=== PATIENT | female | born 1945 | race Caucasian/White ===

== ENCOUNTER 2019-06-02 20:22 | Inpatient (IN) | payer OTHER ==
[~2019-06-02] VITALS: Ht 152.4 cm; Wt 104.8 kg
[~2019-06-02 20:22] MED LIST: AMBIEN 10 MG TA10 MG PO; AMLODIPINE-ATO1 EAC5 PO; ASPIRIN EC81 M1 PO; BENTYL10 MG PO; COLACE 100 MG100 MG PO; COLACE100 MG PO; CRESTOR10 MG PO; DIABETA 5MG TABL5 MG PO; FISH OIL 1,001000 M2 PO; KLOR-CON 1010 MEQ PO; LASIX 20 MG TAB20 MG PO; LEVOTHYROXINE 0.15MG PO; METFORMIN HCL500 MG PO; NEXIUM40 MG PO; PERCOCET PO; PRAVACHOL40 MG PO; PROZAC20 MG PO; QUINAPRIL HCL40 MG PO; SENNA PO; TRICOR145 MG PO; VITAMIN D1000 UNI1 PO
[2019-06-02 20:23] VITALS: BP 165/78
[2019-06-02 21:17] LABS: HEMATOCRIT 37.3 % (37.0-47.0); MCHC 32.3 g/dL (28.0-37.0); MCV 83.5 fL (80.0-100.0); PLATELET COUNT 426 thou/uL (150-400); RBC 4.46 mil/uL (4.20-5.00); RDW 14.2 % (10.5-14.5); WBC 26.6 thou/uL (4.0-11.0)
[2019-06-02 21:24] LABS: CREATININE 1.1 mg/dL (0.6-1.0); POTASSIUM 3.8 mmol/L (3.5-5.1)
[2019-06-02 21:31] LABS: ALBUMIN 4.1 g/dL (3.4-5.0); DIRECT BILIRUBIN 0.3 mg/dL (<0.1-0.3); TOTAL BILIRUBIN 0.5 mg/dL (<0.1-1.0); TOTAL PROTEIN 7.9 g/dL (6.4-8.2)
[2019-06-02 21:49] LABS: ABSOLUTE NEUTROPHILS 24.7 thou/uL (1.4-8.2)
[2019-06-02 22:15] LABS: URINE BILIRUBIN NEGATIVE (Negative); URINE BLOOD NEGATIVE (Negative); URINE CLARITY CLEAR; URINE COLOR YELLOW; URINE GLUCOSE-RANDOM* 3+ (Negative); URINE KETONES 1+ (Negative); URINE LEUKOCYTES-REFLEX NEGATIVE (Negative); URINE NITRITE-REFLEX NEGATIVE (Negative); URINE PROTEIN (DIPSTICK) NEGATIVE (Negative); URINE SPECIFIC GRAVITY >= 1.030 (1.005-1.035); URINE UROBILINOGEN 0.2 E.U./dl (0.2-1.0)
[2019-06-03 00:48] VITALS: BP 165/78
[2019-06-03 02:15] VITALS: BP 152/75
[2019-06-03 02:19] VITALS: BP 128/61
--- NOTE | 2019-06-03 03:57 | NUR ---
PT ARRIVED ON THE UNIT THIS MORNING @0200 ADMISSION DONE AND DOCUMENT. PT C/O PAIN IN MID EPIGASTRIC REGION AND NAUSEA BUT NO EMESIS MEDICATION GIVEN SEE EMAR. PT A&OX4 AND UP AD AMBREEN. IV INTACT IN LFT FOREARM AND FLUIDS INFUSING. PT ON CLEAR LIQUID DIET. ICE CHIPS GIVEN. ON 2L OF O2 FOR SLEEP. PT SON AT BEDSIDE FOR THE NIGHT. CALL LIGHT WITHIN REACH WILL CONT WITH POC TILL EOS.
[2019-06-03 04:38] LABS: CALCIUM 9.2 mg/dL (8.5-10.1); CREATININE 0.9 mg/dL (0.6-1.0); POTASSIUM 3.6 mmol/L (3.5-5.1)
[2019-06-03 04:59] LABS: HEMATOCRIT 35.4 % (37.0-47.0); HEMOGLOBIN 11.4 gm/dL (12.0-15.0); MCHC 32.1 g/dL (28.0-37.0); MCV 84.2 fL (80.0-100.0); RBC 4.21 mil/uL (4.20-5.00); RDW 14.3 % (10.5-14.5); WBC 24.3 thou/uL (4.0-11.0)
[2019-06-03 08:21] VITALS: BP 147/68
--- NOTE | 2019-06-03 15:47 | NUR ---
Assumed care of pt at 0700. Pt a&ox4. Up ad arlette. C/o nausea. Zofran administered. 1.5 hours after med administration, pt c/o nausea again. Provider notified. New order noted. IVF and IV antibiotics infusing. In isolation for presumptive C-diff. Isolation cart ordered. Denies pain. Will continue to monitor.
[2019-06-03 17:07] VITALS: BP 146/67
[2019-06-03] MEDS ORDERED: MICROZIDE12.5 MG PO (19:57)
[2019-06-03 20:20] VITALS: BP 152/72
--- NOTE | 2019-06-04 03:45 | NUR ---
PT AOX4. PT REPORTS 4/10 PAIN IN ABDOMEN. PT RECEIVING PRN MORPHINE IV Q4HR. PT ALSO REPORTING NAUSEA, NO EPISODES OF VOMITING. PT RECEIVING PRN ZOFRAN IV Q4HR AND PRN COMPAZINE IV Q6HR. PT REPORTS MEDICATIONS EFFECTIVE PT REPORTS SHE IS ABLE TO REST. PT SON AT BEDSIDE. PT AMBULATES INDEPENDENTLY WITH STAND BY ASSIST. PT INDEPENDENT IN ADLS. PT REPORTS SOA WITH EXERTION. PROVIDED PT OXYGEN, PT REPORTS RELIEF AT 2L. PT REPORTS NOT RECEIVING HCTZ. PT PROVIDED MEDICAL LIST COPIED AND PLACED IN CHART. MEDICATIONS RECONCILED. RESIDENTIAL ASSISTANT LIFE SKILLS COORDINATOR VOLUNTEER NOTIFIED, HCTZ ON CURRENT EMAR. PT RESTING IN BED WITHOUT INTERRUPTION OR OBSERVATION OF PAIN. ENCOURAGED TO NOTIFY STAFF FOR ALL CONCERNS. BED IN LOWEST POSITION, CALL LIGHT WITHIN REACH, BED ALARM ON. WILL CONTINUE TO MONITOR.
[2019-06-04 06:51] VITALS: BP 137/72
[2019-06-04 07:37] VITALS: BP 125/61
--- NOTE | 2019-06-04 09:40 | NUR ---
ASSUMED CARE AT 0700. PT IS AOX4, REPORTS PAIN IS CONTROLLED AT THIS TIME WITH PAIN ANALGESIC. PT DENIES N/V AT THIS TIME. UP AD AMBREEN, GAVE MILK OF MAG TO HELP WITH CONSTIPATION. CONSULT CALLED TO GI FOR AB HERNIA. NC REMAINS IN PLACE, 02 SAT 90'S WITH 2L O2. CALL LIGHT/PERSONAL BELONGINGS IN REACH. WILL CONTINUE TO MONITOR.
--- NOTE | 2019-06-04 13:49 | NUR ---
ASSESSMENT-PT LIVES IN A RAISED RANCH STYLE HOME WITH HER SON. PT HAS A CHAIRLIFT TO THE MAIN LEVEL OF THE HOME. PT WALKS ON HER OWN AND DOES HER OWN ADLS. PT DRIVES. SON IN GOOD HEALTH AND ABLE TO ASSIST IF NEEDED. PT USES NO DME AND HAS NOT HAD ANY HH SERVICES. PT HAS A WALKER, CANE AND CRUTCHES BUT NOT USING ANY OF THESE. PT VOICES NO CONCERNS REALTED TO DC. FOLLOWING TO ASSIST WITH DC PLANNING.
[2019-06-04 17:11] VITALS: BP 155/67
[2019-06-04 19:10] VITALS: BP 149/69
[2019-06-05 04:30] VITALS: BP 132/53
--- NOTE | 2019-06-05 05:25 | NUR ---
PT AOX4. PT REPORTS MILD NAUSEA AND PAIN 4/10 IN ABDOMEN. PT RECEIVING PRN ZOFRAN Q4HR, PRN COMPAZINE Q6HR, AND PRN MORPHINE Q4HR. PT REPORTS COMPAZINE AND MORPHINE EFFECTIVE FOR NAUSEA AND PAIN MANAGEMENT. PT ANTICIPATING COLONOSCOPY ON 06/05. PT TOLERATING PO INTAKE WITHOUT ISSUE. NO EPISODES OF VOMITING. PT CONTINUES TO AMBULATE INDEPENDENTLY. PT SON AT BEDSIDE. ENCOURAGED TO NOTIFY STAFF FOR ALL CONCERNS. BED IN LOWEST POSITION, CALL LIGHT WITHIN REACH, BED ALARM ON. WILL CONTINUE TO MONITOR.
[2019-06-05 07:30] VITALS: BP 133/64
--- NOTE | 2019-06-05 15:48 | NUR ---
PT AOX4, VSS, NO C/O PAIN. PT IV IN L FOREARM WAS PATENT PRIOR TO GI PROCEDURE. PT BACK TO UNIT APPROX 1545 FROM PACU. PT DENIES PAIN AT THIS TIME. FALL PRECAUTIONS IN PLACE, CALL LIGHT/PERSONAL BELONGINGS IN REACH. WILL CONTINUE TO MONITOR PT.
[2019-06-05 15:51] VITALS: BP 145/65
[2019-06-05 20:50] VITALS: BP 145/73
--- NOTE | 2019-06-05 23:40 | NUR ---
ASSUMED PT CARE @1900. PT DENIES PAIN. EPISODES OF BOWEL INCONTINENCE FREQUENTLY TONIGHT. ANTIBIOTICS GIVEN. PUT BACK ON OXYGEN DUE TO DROPPING SATS. VERY ANXIOUS TO GO HOME.
[2019-06-06 05:00] VITALS: BP 137/59
[2019-06-06 05:59] LABS: HEMATOCRIT 27.7 % (37.0-47.0); HEMOGLOBIN 9.1 gm/dL (12.0-15.0); MCH 27.5 pg (26.0-34.0); MCHC 32.9 g/dL (28.0-37.0); MCV 83.6 fL (80.0-100.0); RBC 3.31 mil/uL (4.20-5.00); RDW 14.3 % (10.5-14.5); WBC 10.1 thou/uL (4.0-11.0)
[2019-06-06 06:14] LABS: CALCIUM 7.7 mg/dL (8.5-10.1); CREATININE 0.6 mg/dL (0.6-1.0); MAGNESIUM 1.5 mg/dL (1.8-2.4); POTASSIUM 3.1 mmol/L (3.5-5.1)
[2019-06-06 07:10] VITALS: BP 138/89; BP 142/69
[2019-06-06 15:00] VITALS: BP 145/65
[2019-06-06] MEDS ORDERED: LEVAQUIN 750 M750 MG PO (16:20)
[2019-06-06] MEDS ORDERED: FLAGYL500 M1 PO (16:20)
[2019-06-06] MEDS ORDERED: LASIX 20 MG TAB20 MG PO (16:21)
[2019-06-06] MEDS ORDERED: B-12500 MCG PO (16:23)
--- NOTE | 2019-06-06 16:34 | NUR ---
PT ASSESSED AT START OF SHIFT. STATES NO NAUSEA OR ABD PAIN BUT IS STILL CLEANING OUT AFTER LAXATIVE FOR COLONOSCOPY. GI ROUNDED AND ADVANCED DIET TO REGULAR FOOD AND PT TOLERATED IT WELL. PT O2 SAT DECREASED SOME AND NEEDING OXYGEN. EXERCISE SAT PERFORMED BY RESP THERAPY AND PT DISCHARGING HOME ON 2L NC. AMBULATED IN THE HALLS TWICE.
--- NOTE | 2019-06-06 16:53 | NUR ---
FAXED REFERRAL TO [facility] FOR HOME O2 RECEIVED CONFIRMATION AND SPOKE WITH INTAKE THEY HAVE A OVEN TECHNICIAN DELIVERING A O2 TANK TODAY PRIOR TO DC.
[2019-06-06 19:33] VITALS: BP 145/65
--- NOTE | 2019-06-07 17:06 | PATH ---
[facility] [place] [address] PATHOLOGY RPT PROCEDURE Name: MARVINCHITOJarad ROSSI Room #: 434-P DIS IN M.R.#: [id number] Admission: 06/03/19 Date of : 49 Discharge: 06/06/19 Report #: [id number] Path Case #: [id number] [facility] Accession Number: [id number] . 01 Material submitted: . PART A: colon - BX AT 100CM PART B: colon - BX AT NARROWING 90CM PART C: sigmoid colon - POLYP AT SIGMOID . 01 Clinical history: . Abd pain; abnormal CT scan . 02 Diagnosis: A. Large intestinal mucosa, at 100 cm, endoscopic biopsy: - Mild active colitis associated with reactive/regenerative changes. - Negative for dysplasia or malignancy. . B. Large intestinal mucosa, at narrowing 90 cm, endoscopic biopsy: - Mild active colitis associated with reactive/regenerative changes. - Negative for dysplasia or malignancy. . C. Polyp, at sigmoid, endoscopic biopsy: - Hyperplastic polyp. - Negative for dysplasia or malignancy. LBQ 06/07/2019 1431 Local . 02 Comment: Examination of the "100 cm", and "90 cm" biopsy tissues shows a cellular lamina propria comprised of neutrophils, eosinophils, lymphocytes as well as plasma cells. A few pigmented macrophages are identified compatible with melanosis coli. The overlying surface epithelium is denuded in several areas and shows a thin fibrotic lining. Thickening of subepithelial collagen is not appreciated where the epithelium is intact. Architectural abnormalities are not identified. There are no crypt abscesses identified as well. Increase in intraepithelial lymphocytes is not present. Viral inclusions or parasitic organisms are not identified. Overall, the findings are non-specific and may represent medication/drug induced colitis, reparative changes secondary to inactive self-limited or infectious-type of colitis, diverticulitis, as well as healing ischemic colitis. Clinical correlation is required. There is no dysplasia or malignancy present. (IUV/db; 06/07/2019) . 02 Electronically signed: . Sulma Cardoso MD, Pathologist NPI- [id number] . [address] [place] [address] PATHOLOGY RPT PROCEDURE Name: CHITO PEARSON Room #: 434-P DIS IN M.R.#: [id number] Admission: 06/03/19 Date of : 49 Discharge: 06/06/19 Report #: [id number] Path Case #: [id number] Gross description: . A. Received in formalin labeled "Chito Pearson, BX at 100cm," are two segments of pale ward soft tissue measuring 0.2 x 0.1 x 0.1 cm and 0.3 x 0.3 x 0.2 cm in greatest dimensions. The specimen is submitted entirely in cassette A1. The smaller segment may not survive processing. . B. Received in formalin labeled "Chito Pearson, BX at narrowing 90cm colon," are four segments of pale ward soft tissue measuring 0.7 x 0.5 x 0.2 cm in aggregate dimensions and ranging from 0.3 to 0.4 cm in maximum dimension. The specimen is submitted entirely in cassette B1. . C. Received in formalin labeled "Chito Pearson, polyp at sigmoid colon," are two segments of ward-brown soft tissue measuring 0.3 x 0.2 x 0.1 cm and 0.4 x 0.3 x 0.2 cm in greatest dimensions. The specimen is submitted entirely in cassette C1. ([facility]; 06/06/2019) XNM/XNM 06/06/2019 09 Local . 02 Pathologist provided ICD-10: K52.9, K63.5 . 02 CPT . 181821, 981434, 884899 Specimen Comment: A courtesy copy of this report has been sent to [phone], [phone] Specimen Comment: [phone], Specimen Comment: Report sent to , and Performed at: [address], [place] [id number] MD Tim Rojas MD Phone: [phone] Performed at: [address] [id number] MD Sulma Cardoso MD Phone: [phone]
--- NOTE | 2019-06-13 08:11 | P ---
[facility] [place] [address] [place] [address] PROCEDURE REPORT Name: CHITO WONG Room #: 434-P [facility] IN M.R.#: [id number] Admission: 06/03/19 Attend Phys: Jez Tavarez MD Discharge: 06/06/19 Date of : 49 Report #: [id number] THIS REPORT FOR: //name// CC: Kath Sanders. Jez Tavarez MD DATE OF SERVICE: 06/05/2019 PROCEDURE PERFORMED: Colonoscopy with biopsies. HISTORY OF PRESENT ILLNESS: The patient is a 74-year-old female with abdominal pain. On admission on 06/02/2019 showed inflammatory change abnormal wall thickening extending to the proximal colon through the ascending colon, hepatic flexure, and transverse colon to the supraumbilical hernia felt to represent colitis. Clinical correlation is recommended. The patient does have elevated white count. She has been on Flagyl and Cipro since admission. She has a hernia measuring 4.1 cm in transverse supraumbilical region. She is feeling better. She denies any blood in her stools. White blood cell count 2 days ago was 24.3. DESCRIPTION OF PROCEDURE: The risks and benefits of the procedure were explained to the patient, those risks including but not limited to bleeding, perforation and the risk of sedation. She understood these risks and gave informed consent. Sedation was given using propofol per anesthesia. Next, a digital rectal exam was initially performed, which was normal. Next, using a standard Olympus colonoscope, the scope was placed in the patient's anus and advanced under direct vision to 100 cm at which point a narrowing, but more likely a tight turn was noted. I was able to advance the scope through this area, but not able to advance it through any further once I got through the narrowing. I suspect the scope is being advanced into one of the hernias and I am not able to advance the scope any further. I tried multiple times over approximately 30-40 minutes. The mucosa was slightly more pale in this pocket. Biopsies were obtained to rule out ischemic colitis, but no bleeding or no ulcerations were noted. I also obtained some biopsies at the narrowing, but again this may just be the opening to the hernia. I never was able to reach the cecum despite multiple attempts. The scope was then slowly withdrawn. The remaining descending colon was normal. Multiple diverticula were noted in the sigmoid colon, a 4 mm sessile polyp was noted in the sigmoid colon. This was removed with cold forceps. The rectal mucosa was normal. On retroflexion, no abnormalities were noted. The scope was then withdrawn and the procedure terminated. The patient tolerated the procedure well. IMPRESSION: 1. Unable to advance the scope further than 100 cm. I suspect this is due to [facility] [address] [place] [address] PROCEDURE REPORT Name: CHITO WONG Room #: 434-P DIS IN M.R.#: [id number] Admission: 06/03/19 Attend Phys: Jez Tavarez MD Discharge: 06/06/19 Date of : 49 Report #: [id number] the scope looping in a hernia sac. Per CT, there appears to be colitis proximal to this, there was some mild paleness to the mucosa in the hernia sac area or beyond the area of narrowing. Biopsies were obtained, but again, I was not able to advance the scope much further despite multiple attempts. 2. Sigmoid diverticulosis without inflammation. 3. Small sigmoid colon polyp. RECOMMENDATIONS: 1. Await biopsy results. 2. Continue IV antibiotics. 3. Stool was also obtained and sent for further studies today. 4. If symptoms persist or if white blood cell count remains elevated, may need to consider repeat imaging or even barium enema. The patient may require surgical repair of hernias. Dr. Sanders is following. Thank you for allowing me to participate in her care. <ELECTRONICALLY SIGNED> By: Evelio Zuñiga MD 06/13/19 0811 1505 [id number] Evelio Zuñiga MD /nt
== END 2019-06-06 19:56 | disposition home or self-care (01) | DRG 871 ==
LOC: ER 20:22 → 4S 06-03 00:23 → EROBS 06-03 00:23 → 4S 06-03 02:15
PROVIDERS: Emergency Medicine; Internal Medicine; Nurse Practitioner; Nurse Practitioner Family; ADMIT Internal Medicine
DX: A41.9 Sepsis, unspecified organism (principal); J96.20 Acute and chronic respiratory failure, unspecified whether with hypoxia or hypercapnia; A09 Infectious gastroenteritis and colitis, unspecified; Z68.42 Body mass index [BMI] 45.0-49.9, adult; N17.9 Acute kidney failure, unspecified; I50.32 Chronic diastolic (congestive) heart failure; K58.9 Irritable bowel syndrome, unspecified; E66.01 Morbid (severe) obesity due to excess calories; E03.9 Hypothyroidism, unspecified; E78.5 Hyperlipidemia, unspecified; E11.9 Type 2 diabetes mellitus without complications; K21.9 Gastro-esophageal reflux disease without esophagitis; M19.90 Unspecified osteoarthritis, unspecified site; G47.33 Obstructive sleep apnea (adult) (pediatric); K46.9 Unspecified abdominal hernia without obstruction or gangrene; K57.90 Diverticulosis of intestine, part unspecified, without perforation or abscess without bleeding; K43.2 Incisional hernia without obstruction or gangrene; E53.8 Deficiency of other specified B group vitamins; E87.6 Hypokalemia; E83.42 Hypomagnesemia; I11.0 Hypertensive heart disease with heart failure; D64.9 Anemia, unspecified; Z90.49 Acquired absence of other specified parts of digestive tract; Z79.4 Long term (current) use of insulin; Z79.82 Long term (current) use of aspirin; Z79.891 Long term (current) use of opiate analgesic; Z79.899 Other long term (current) drug therapy; Z79.84 Long term (current) use of oral hypoglycemic drugs
CPT/HCPCS: 10100; 10195; 62110; 62900; 70005

== ENCOUNTER → 2019-06-28 | Outpatient (CLI) | payer OTHER ==
[~2019-06-28] MED LIST changes: +B-12500 MCG PO; +FLAGYL500 M1 PO; +LEVAQUIN 750 M750 MG PO; +MICROZIDE12.5 MG PO
[2019-06-28 15:45] LABS: BE(vivo) 3.7 mmol/L (-2 to +3); HCO3 27.9 mmol/L (22.0-26.0); PCO2 40.6 mmHg (35.0-45.0); PO2 67.6 mmHg (80.0-100.0); pH 7.455 (7.360-7.450); sO2 94.3 % (92.0-98.0)
== END ==
LOC: PUL 15:04
PROVIDERS: Internal Medicine
DX: R06.02 Shortness of breath (principal)

== ENCOUNTER → 2019-07-10 | Outpatient (CLI) | payer OTHER ==
--- NOTE | 2019-07-11 14:11 | SLE ---
[facility] [place] [address] [place] [address] POLYSOMNOGRAPHY STUDY Name: CHITO WONG Room #: [facility]#: [id number] Admission: 07/10/19 Attend Phys: Eugenio Smith MD Discharge: Date of : 49 Report #: [id number] THIS REPORT FOR: //name// CC: Eugenio Seals MD DATE OF SERVICE: 07/10/2019 SLEEP STUDY ATTENDING PHYSICIAN: Dr. Kayden Seals. The patient is 74 years old who weighs 240 pounds with a BMI of 46.9. The patient's [place] score was 8. The patient underwent split night study performed at [facility]. During the night study, the patient spent 500 minutes in bed and slept for 319 minutes with a low sleep efficiency of 63%. Sleep latency was 33 minutes with a REM latency of 174 minutes. Sleep architecture showed increased stage 1 sleep, normal stage 2 sleep, absent slow wave and increased REM sleep. During the initial diagnostic portion of the study, the patient slept for 145 minutes. During that time, there were 15 obstructive apneas, no mixed or central apneas and 72 hypopneas. The patient's apnea-hypopnea index was 36 per hour with a REM index of 96 per hour and a supine index of 43 per hour. EKG monitoring revealed an average heart rate of 82 beats per minute. No sustained arrhythmias observed. Occasional PVCs seen. No clinically significant PLM seen. Nocturnal oximetry study revealed an average oxygen saturation of 89% with the lowest of 63%. Over 70 minutes were spent in oxygen saturation of less than 89%. The patient met the criteria for CPAP initiation. It was started at 7 cm water and titrated up to 17 cm water. At the final pressure, the patient slept for 43 minutes, almost the entire time was spent in supine REM sleep. The patient's AHI was still 22 per hour due to multiple hypopneas and oxygen saturation remained above 88% with few desaturations in the low 80s. Optimum CPAP pressure was not achieved. IMPRESSION: 1. Severe sleep apnea-hypopnea syndrome. The patient's total AHI 36 per hour [facility] [address] [place] [address] POLYSOMNOGRAPHY STUDY Name: MARVINCHITOJarad ROSSI Room #: [facility]#: [id number] Admission: 07/10/19 Attend Phys: uEgenio Smith MD Discharge: Date of : 49 Report #: [id number] with further worsening AHI to 96 per hour during REM sleep. 2. Nocturnal hypoxia secondary to obstructive sleep apnea. 3. No clinically significant periodic limb movements of sleep. 4. Reduced sleep efficiency of 63%. RECOMMENDATIONS: 1. Optimum CPAP pressure was not achieved on this split night study despite reaching CPAP at 17 cm water. The patient had a very long REM sleep period at that pressure and as a result, was still having hypopneas. I would recommend that the patient should return to the sleep lab for a full night BiPAP titration study, starting at a BiPAP pressure of 14/10 and following the protocols. 2. Once the patient is optimally treated with BiPAP, then follow up in 4-6 weeks to assess compliance and to document clinical improvement. 3. Weight loss is strongly advised. 4. Avoid HIDE INSPECTOR AND SORTER depressants. 5. Cautioned regarding driving until symptoms of sleep apnea resolve with the use of BiPAP. <ELECTRONICALLY SIGNED> By: Eugenio Smith MD 07/11/19 1411 1202 1228 Eugenio Smith MD /nt
== END ==
LOC: SLEEPLAB 14:23
DX: G47.33 Obstructive sleep apnea (adult) (pediatric) (principal); G47.30 Sleep apnea, unspecified

== ENCOUNTER → 2019-07-26 | Outpatient (CLI) | payer OTHER ==
--- NOTE | 2019-07-30 15:40 | SLE ---
[facility] [place] [address] [place] [address] POLYSOMNOGRAPHY STUDY Name: CHITO WONG Room #: [facility]#: [id number] Admission: 07/26/19 Attend Phys: Eugenio Smith MD Discharge: Date of : 49 Report #: [id number] THIS REPORT FOR: //name// CC: Eugenio Seals MD DATE OF SERVICE: 07/26/2019 SLEEP STUDY. REFERRING PHYSICIAN: Dr. Kayden Seals. The patient is a 74-year-old who weighs 240 pounds with a BMI of 46.9. The patient had a previous split night study and was found to have severe JULIA at an AHI of 36 per hour. The patient was titrated up to CPAP at 17 cm water, but due to a very long REM period, the patient was still having hypopneas and an optimum CPAP pressure was not achieved. She was recommended to have a full night BiPAP titration study. During the night study, the patient spent 436 minutes in bed and slept for 255 minutes with a low sleep efficiency of 58%. Sleep latency was 5.2 minutes with a REM latency of 54 minutes, which was short. Sleep architecture showed increased stage 1 and stage 2 sleep, absent slow wave and reduced REM sleep, which was 8.6% of the total sleep time. EKG monitoring revealed an average heart rate of 67 beats per minute. No sustained arrhythmias observed. PLMS were seen at an index of 4 per hour and 0.2 per hour caused EEG arousals. The patient was started on BiPAP at a pressure of 10/5. The pressure was gradually increased to eliminate apneas as well as hypopneas. The patient's BiPAP pressure was increased all the way up to 21/14. At that pressure, the patient had only 11.8 minutes of sleep. AHI was reduced to 0 per hour and oxygen saturation remained above 95%. The patient also did well at a lower BiPAP pressure of 17/10 and at that pressure, the patient also had 17 minutes of REM sleep and AHI was 3.1 per hour. IMPRESSION: 1. Severe sleep apnea diagnosed by previous sleep study. 2. No clinically significant periodic limb movements. 3. 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 RECOMMENDATIONS: [facility] [address] [place] [address] POLYSOMNOGRAPHY STUDY Name: CHITO WONG [place] Room #: [facility]#: [id number] Admission: 07/26/19 Attend Phys: Eugenio Smith MD Discharge: Date of : 49 Report #: [id number] 1. BiPAP at a pressure of 21/14 completely eliminate the patient's sleep apnea and should be used on a nightly basis. 2. Follow up in 4-6 weeks to assess compliance with BiPAP and to document clinical improvement along with review of the download data. 3. Weight loss is strongly advised. 4. Avoid EDGE GLUE MACHINE TENDER depressants. 5. Cautioned regarding driving until symptoms of sleep apnea resolve with the use of BiPAP. <ELECTRONICALLY SIGNED> By: Eugenio Smith MD 07/30/19 1540 1027 1045 Eugenio Smith MD /nt
== END ==
LOC: SLEEPLAB 07-20 20:27
DX: G47.30 Sleep apnea, unspecified (principal)

== ENCOUNTER 2019-11-07 17:36 | Inpatient (IN) | payer OTHER ==
[~2019-11-07] VITALS: Ht 152.4 cm; Wt 112.0 kg
--- NOTE | ~2019-11-07 | O ---
[facility] [place] [address] OPERATIVE REPORT Name: CHITO WONG Room #: 457-P ADM IN M.R.#: [id number] Admission: 11/07/19 Attend Phys: Robin Hogan MD Discharge: Date of : 47 Report #: [id number] THIS REPORT FOR: cc: Cornelia Sage MD, Staci M. MD Soliman, Mohsin Q. MD FACS ~ CC: Robin Saeg DATE OF SERVICE: 11/12/2019 PREOPERATIVE DIAGNOSES: 1. Multiple incarcerated recurrent incisional ventral hernias. 2. Suspected intraabdominal adhesions. POSTOPERATIVE DIAGNOSES: 1. Multiple incarcerated recurrent incisional ventral hernias containing omentum and a loop of transverse colon. 2. Significant intra-abdominal adhesions. PROCEDURES PERFORMED: 1. Laparoscopic repair of multiple incarcerated recurrent incisional ventral hernias with mesh. 2. Laparoscopic lysis of adhesions. SURGEON: Nola Reddy MD SHED HAND: BIMAL Dacosta ANESTHESIA: General endotracheal anesthesia. ESTIMATED BLOOD LOSS: Minimal (less than 5 mL). COMPLICATIONS: None appreciated. SPECIMENS: Incarcerated contents of hernia sac to pathology. INDICATIONS: The patient is a 74-year-old obese female, who has been admitted for the second time in 6 months with partial obstructive symptoms from an incarcerated loop of transverse colon contained within a recurrent incisional ventral hernia down her upper midline incision from a prior open paraesophageal hernia repair. The patient does relate that she had an attempt at open suture repair of a hernia in the past and unfortunately, these have recurred with CT scan finding showing the above. After thorough consultation with the patient, we have elected to proceed to the operating room today for the above-mentioned procedures. [facility] [address] [place] [address] OPERATIVE REPORT Name: CHITO WONG Room #: 457-P [facility] IN .R.#: [id number] Admission: 11/07/19 Attend Phys: Robin Hogan MD Discharge: Date of : 47 Report #: [id number] DESCRIPTION OF PROCEDURE: After explaining the risks, benefits and alternatives of the procedure with the patient in detail in the preoperative holding area and obtaining written consent, the patient was brought to the operating room and placed supine on the operating room table. After conducting a thorough timeout procedure verifying correct patient and procedure, the patient was given general endotracheal anesthesia. Once adequate anesthesia was obtained, her SCDs were hooked up to pneumatic compression device and she was given a preoperative dose of antibiotics in line with the SCIP protocol. The patient's abdomen was prepped and draped in standard surgical sterile fashion. A 5 mL of 0.5% Marcaine with epinephrine were used to anesthetize the skin in the left upper quadrant, midclavicular line in the subcostal location. A #15 bladed scalpel was used to create a small skin liset at this location. A 5-mm Visiport was placed over 0-degree 5-mm laparoscope and was introduced through this incision site. Once intra-abdominal placement was verified visually, the obturator for the trocar and laparoscope were both removed and the abdomen was insufflated to 15 mmHg using carbon dioxide gas. The laparoscope was changed to a 5-mm 30-degree laparoscope, which was reintroduced through this trocar. The entire abdomen was evaluated to ensure no injury upon entry. We immediately encountered significant adhesions in the mid abdomen, but the left flank was devoid of adhesions. I was therefore able to place a 12-mm port lateral to the umbilicus in the anterior axillary line, and an additional 5-mm port in the left lower quadrant. Both were placed under direct vision after anesthetizing the skin at each location with 5 mL of 0.5% Marcaine with epinephrine and I had created small skin nicks using #15 bladed scalpel. Laparoscope was removed and changed to the 12 mm port, and I now proceeded to take down all the adhesions from the abdominal wall using the Harmonic scalpel. This allowed me to fully reduce all the incarcerated omentum from the numerous recurrent incisional ventral hernias. The segment of transverse colon that was incarcerated in her hernia was luckily able to be reduced, leaving a clear plane between the bowel and the abdominal wall and hernia sac. I was therefore able to take the hernia sac down with ease using Harmonic scalpel without fear of injury to the bowel from thermal spread. Once I had removed all these adhesions, I skeletonized posterior aspect of the anterior abdominal wall, taking down all the tethered preperitoneal fat as well. Photodocumentation of the hernia defects was now taken and provided to the patient's permanent medical record. A small stab incision was made in the midline wound overlying the center most portion of the span of the defects and now numerous #1 PDS sutures on the Rj-Felipe suture passer device were used to place sjrrui-go-[id number] sutures around each of the large hernia defects. These were all tagged with hemostats and the spread of hernia defects was measured to be 15 cm in craniocaudal dimension x 3 cm laterally. I therefore selected a piece of Ventralight ST mesh measuring 25 x 15 cm in dimension to allow for 5 cm overlap in all directions outside of the span of the hernia defects. The mesh was rolled up, placed in the intra-abdominal space and the Rj-Felipe suture passer device was again driven through the stab incision in the mid abdominal region centered through [facility] [address] [place] [address] OPERATIVE REPORT Name: MARVIN,CHITO ROSSI Room #: 457-P ADM IN M.R.#: [id number] Admission: 11/07/19 Attend Phys: Robin Hogan MD Discharge: Date of : 47 Report #: [id number] the hernia defect at the mid portion of the span, which was then used to grasp the end eyelet of the balloon insufflation tubing which was then pulled up through the abdominal wall, cut off and passed off the field. The balloon insufflation tubing was now attached to the syringe and insufflator and the echo scaffolding was fully inflated and tagged with a hemostat at the skin level without having the mesh in close approximation with posterior aspect of the anterior abdominal wall at this juncture. The insufflation pressure was now reduced to 8 mmHg, and I proceeded to sequentially tie down each of the #1 PDS sutures while maintaining traction on the others to fully repair all of the recurrent incisional ventral hernias down the midline from a primary suture fashion. These were then cut at the skin level. I now pulled up on the balloon insufflation tubing which held the entire mesh in close approximation with posterior aspect of the anterior abdominal wall throughout and tagged with another hemostat at the skin level to maintain positioning. I now fixed this into position using the secure strap absorbable fixation device placing numerous tacks around the periphery of the mesh at 1 cm intervals as well as several tacks throughout the innermost portion of the mesh as well to hold the entire mesh in close approximation with posterior aspect of the anterior abdominal wall throughout. The echo scaffolding was removed under direct vision and hemostasis was assured. Photodocumentation of the suture repair as well as the corresponding mesh repair was taken and provided to the patient's permanent medical record as well. One final evaluation of the intra-abdominal domain showed no further evidence of pathology. The laparoscope was removed, changed back to the left upper quadrant trocar and I closed the 12-mm fascial incision using 0 PDS suture on a Rj-Felipe suture passer device. This was tied down under direct vision as well. The abdomen was now fully desufflated. All remaining trocars were removed under direct vision. A 4-0 Monocryl was used in a standard subcuticular fashion for all skin incisions and Dermabond glue was applied to all skin wounds. At the end of the procedure, all instrument, needle and sponge counts were correct. The patient tolerated the procedure without incident, was awakened in the operating room, transitioned to the recovery room in stable condition with no apparent complications. By: [id number] Nola Reddy MD, FACS /nt
[2019-11-07 17:48] VITALS: BP 163/65
[2019-11-07 17:59] LABS: URINE BILIRUBIN NEGATIVE (Negative); URINE BLOOD TRACE (Negative); URINE CLARITY TURBID; URINE COLOR YELLOW; URINE GLUCOSE-RANDOM* 3+ (Negative); URINE KETONES NEGATIVE (Negative); URINE LEUKOCYTES-REFLEX NEGATIVE (Negative); URINE NITRITE-REFLEX NEGATIVE (Negative); URINE PROTEIN (DIPSTICK) NEGATIVE (Negative); URINE UROBILINOGEN 0.2 E.U./dl (0.2-1.0)
[2019-11-07 18:37] LABS: HEMATOCRIT 33.6 % (37.0-47.0); HEMOGLOBIN 11.3 gm/dL (12.0-15.0); MCH 27.5 pg (26.0-34.0); MCHC 33.7 g/dL (28.0-37.0); MCV 81.5 fL (80.0-100.0); PLATELET COUNT 350 thou/uL (150-400); RBC 4.13 mil/uL (4.20-5.00); RDW 14.4 % (10.5-14.5); WBC 15.6 thou/uL (4.0-11.0)
[2019-11-07 18:45] LABS: ANION GAP 13 mmol/L (7-16); BUN 10 mg/dL (7-18); CALCIUM 8.3 mg/dL (8.5-10.1); CHLORIDE 99 mmol/L (98-107); CO2 25 mmol/L (21-32); GLUCOSE 265 mg/dL (74-106); POTASSIUM 3.6 mmol/L (3.5-5.1); SODIUM 137 mmol/L (136-145)
[2019-11-07 18:55] LABS: ALBUMIN 3.6 g/dL (3.4-5.0); LIPASE 54 U/L (73-393); SGOT 16 U/L (15-37); SGPT 18 U/L (30-65); TOTAL BILIRUBIN 0.4 mg/dL (<0.1-1.0); TOTAL PROTEIN 7.1 g/dL (6.4-8.2); TROPONIN-I <0.06 ng/mL (<0.06)
[2019-11-07 19:13] LABS: ABSOLUTE NEUTROPHILS 14.4 thou/uL (1.4-8.2); PLATELET ESTIMATE NORMAL
[2019-11-07] MEDS ORDERED: FENOFIBRATE145 M1 PO (19:15)
[2019-11-07] MEDS ORDERED: HYDROCHLOROTH12.5 M2 PO (19:15)
[2019-11-07] MEDS ORDERED: AMLODIPINE-ATO1 EAC6 PO (19:15)
[2019-11-07] MEDS ORDERED: LEVOTHYROXINE150 MCG PO (19:15)
[2019-11-07] MEDS ORDERED: VITAMIN B-12500 MCG PO (19:16)
[2019-11-07] MEDS ORDERED: OMEPRAZOLE 20 M20 M1 PO (19:20)
--- NOTE | 2019-11-07 20:07 | NUR ---
1ST SET OF BLOOD CULTURES DRAWN FROM RAC AT THIS TIME. THIS IS THE SECOND ATTEMPT AT DRAWING BLOOD CULTURES. WILL ATTEMPT TO DRAW SECOND SET FROM THE RIGHT ARM AGAIN AFTER THE ALLOTED 15 MINUTES HAVE PASSED.
[2019-11-07 21:47] VITALS: BP 176/76
[2019-11-07 21:54] VITALS: BP 167/76
[2019-11-07 22:10] LABS: CHOLESTEROL 213 mg/dL (<200); HDL CHOLESTEROL 45 mg/dL (>40); LDL CHOLESTEROL 134 mg/dL (<100); TC:HDL 4.7 Ratio (Not establshd); TRIGLYCERIDE 171 mg/dL (<150); VLDL 34 mg/dL (<40)
[2019-11-07 22:12] LABS: SERUM ASSESSMENT Clear
[2019-11-07 22:18] VITALS: BP 138/72
--- NOTE | 2019-11-07 23:45 | NUR ---
Pt arrived from ED approx 2215 via cart accompanied by staff. A/OX4, VSS. Up ad arlette w/o problems. Pt oriented to room and sorroundings,admission paperwork signed. C/o mild abd pain at this time and declines pain medication. Denies nausea. Pt encouraged to call for help as needed before getting OOB and agreeable. IVF infusing via RFA w/o difficulties. Pt wears a BIPAP at home son supposed to bring pt's own BIPAP sometime, pt on 2L/NC, RT came by and offered one she declines at this time and states she'll be fine on oxygen and call if needed. Resting quietly at this time no distress noted, will continue to monitor pt.
[2019-11-08 03:55] VITALS: BP 131/62
[2019-11-08 07:45] VITALS: BP 129/77
--- NOTE | 2019-11-08 08:22 | EKG ---
[facility] [place] [address] [place] [address] ELECTROCARDIOGRAM REPORT Name: CHITO WONG Room #: 457-P ADM IN M.R.#: [id number] Admission: 11/07/19 Attend Phys: Robin Hogan MD Discharge: Date of : 47 Report #: [id number] THIS REPORT FOR: cc: Cornelia Sage MD, Staci M. MD Lundgren, Craig H. 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 : 1945 Requested By: Stefanie Mota Order Number: [id number] MD: Alcon Moore Measurements Intervals Lavina Rate: 69 P: -24 NJ: 219 QRS: -1 QRSD: 78 T: 4 QT: 446 QTc: 478 Interpretive Statements Sinus rhythm Borderline prolonged NJ interval Borderline T abnormalities, diffuse leads Compared to ECG 06/03/2006 11:15:14 No significant changes Electronically Signed On 11-08-2019 8:21:03 CDT by Alcon Moore [email or web address] <ELECTRONICALLY SIGNED> By: Alcon Moore MD, [facility] 11/08/19 [id number] Alcon Moore MD, [facility] /EPI
--- NOTE | 2019-11-08 11:32 | NUR ---
tried calling phil in room, no answer. will cont following as needed
--- NOTE | 2019-11-08 13:47 | NUR ---
Nutrition: pt seen due to consult related to "diabetes". Pt currently on clear liquid diet for colitis, partial SBO. Reports normal appetite/intake prior to admit. Did have some weight loss in may following a hospitalization, approx. 5%. BMI 48 extreme class 3 obesity. 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 A1C pending. Good BG control at present. Does not voice education desires at present. Possible need for surgery per GI as hernia is containing loop of colon. Will follow for timely diet advancement and further education needs. Place as low risk for now.
[2019-11-08 15:24] VITALS: BP 132/59
[2019-11-08 19:07] VITALS: BP 129/52
--- NOTE | 2019-11-08 19:36 | NUR ---
PT A&OX4, VSS, C/O HEADACHE. FLUIDS CONTINUE TO RUN. PATIENT SR ON TELE MONITOR. NO SIGNS OF DISTRESS. WILL CONTINUE TO MONITOR.
[2019-11-09 01:07] LABS: GLYCOHEMOGLOBIN (HGB A1C) 7.6 % (4.8-5.6)
[2019-11-09 03:51] VITALS: BP 146/62
--- NOTE | 2019-11-09 04:44 | NUR ---
ASSUMED CARE OF PT AT 1900HRS. PT AOX4 AND LETS NEEDS BE KNOWNS. PT IS UP AD AMBREEN. PT DESATS ON RA, SPECIALLY AT HS AND WAS PUT ON 2L O2 VIA NC. ABX TREATMENT CONTINUED. FLUIDS CONTINUED. PT COMPLAINED OF SOME ABD PAIN BUT DID NOT WANT PAIN MEDS. PT WAS ABLE TO GET COMFORTABLE AND SLEEP PART OF THE SHIFT. VSS AND NO S/S OF ACUTE DISTRESS. WILL CONTINUE TO MONITOR.
[2019-11-09 07:57] VITALS: BP 154/68
--- NOTE | 2019-11-09 15:13 | NUR ---
ORDERS RECEIVED FOR PT EVAL AND TREAT. Pt SITTING AT [facility] TALKING ON HER CELL PHONE UPON PT ARRIVAL. Pt ON RA WITH SATS 92%. LIVES WITH SON IN HOME WITH STAIR GLIDE FROM GARAGE TO MAIN LEVEL. NO AD FOR GAIT. INDEP WITH ADLs. HAS SHOWER CHAIR AND GRAB BARS. DRIVES. FELL AT [employer] WITHIN LAST 6 MONTHS WHEN SHE TURNED AND TRIPPED OVER A FLAT BED CART THAT ANOTHER YARD ATTENDANT WAS PUSHING. 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 Pt HAS BEEN UP AD AMBREEN AND HAS BEEN GETTING TO/FROM BATHROOM WITH IV POLE WITHOUT DIFFICULTY. Pt DENIED PT NEEDS AT THIS TIME. ACUTE PT TO SIGN OFF. PLAN IS FOR Pt TO GO TO OR ON TUESDAY FOR SURGICAL REPAIR OF HERNIA. PLEASE CONSIDER RE-CONSULTING PT SERVICES S/P SURGICAL INTERVENTION IF NEEDED.
[2019-11-09 15:15] VITALS: BP 168/79
[2019-11-09 19:19] VITALS: BP 127/54
--- NOTE | 2019-11-09 19:29 | NUR ---
PT A&OX4, VSS, DENIES PAIN TODAY. PATIENT AD AMBREEN TO BATHROOM, STEADY ON FEET. PATIENT ON 2L O2 FOR DESATURATION AT NIGHT. IV IN RIGHT FOREARM, FLUIDS RAN ORDERED. SURGERY ON SATURDAY 11/11. NO SIGNS OF DISTRESS. WILL CONTINUE TO MONITOR.
--- NOTE | 2019-11-10 01:58 | NUR ---
PT CARE ASSUMED WITH PT IN BED AT 1915.PT IS A/O X4.PT IS UP AD AMBREEN .PT IS ON CLEAR LIQUID DIET.PT IS ON 2L OF O2 AT NIGHT.IV ACCESS ON RT FA WITH NS AT 100CC/HR.PT IS TO HAVE SURGERY ON TUESDAY FOR HERNIA.PT IS ACCUCHECKS ACHS WITH LOW SSI.WILL CONTINUE TO MONITOR POC
[2019-11-10 03:36] VITALS: BP 136/59
[2019-11-10 05:09] LABS: HEMATOCRIT 30.9 % (37.0-47.0); HEMOGLOBIN 10.4 gm/dL (12.0-15.0); MCH 27.8 pg (26.0-34.0); MCHC 33.8 g/dL (28.0-37.0); MCV 82.4 fL (80.0-100.0); RBC 3.75 mil/uL (4.20-5.00); RDW 14.4 % (10.5-14.5); WBC 7.4 thou/uL (4.0-11.0)
[2019-11-10 05:25] LABS: ALBUMIN 3.3 g/dL (3.4-5.0); CREATININE 0.8 mg/dL (0.6-1.0); TOTAL BILIRUBIN 0.5 mg/dL (<0.1-1.0); TOTAL PROTEIN 6.4 g/dL (6.4-8.2)
[2019-11-10 05:27] LABS: POTASSIUM 2.9 mmol/L (3.5-5.1)
[2019-11-10 08:04] VITALS: BP 144/53
[2019-11-10 17:03] VITALS: BP 152/71
[2019-11-10 19:08] VITALS: BP 128/50
--- NOTE | 2019-11-10 19:45 | NUR ---
Assumed pt care at 7am.Assessment completed.Pt in and out of bed to br independently.Tolerated meds and clear liq.No verbal c/o.Pt looking towards for surgery scheduled for tuesday.Dr Hogan here,No verbal c/o. Will contine to monitor.
--- NOTE | 2019-11-11 02:00 | NUR ---
PT CARE ASSUMED AT 1915 WITH PT WATCHING TV .PT IS A/O X4.PT IS UP AD AMBREEN.PT IS ON 2L OF O2 AT NIGHT.PT IS ON CLEAR LIQUID DIET AND PROTEIN ENSURE SHAKES WITH EVERY MEAL.PT IS ACCUCHECK ACHS.PT IS ON TELEMETRY.PT IS ON POTASSIUM FOR LOW POTASSIUM.PT TO HAVE SURGERY ON TUESDAY FOR HERNIA.WILL CONTINUE TO MONITOR PER POC
[2019-11-11 03:22] VITALS: BP 146/64
[2019-11-11 06:58] VITALS: BP 157/59
[2019-11-11 13:25] LABS: CALCIUM 8.8 mg/dL (8.5-10.1); CREATININE 0.9 mg/dL (0.6-1.0); MAGNESIUM 1.4 mg/dL (1.8-2.4); POTASSIUM 4.1 mmol/L (3.5-5.1)
[2019-11-11 15:01] VITALS: BP 153/85
--- NOTE | 2019-11-11 15:51 | NUR ---
PT A&OX4, VSS, DENIES PAIN. PATIENT HAS NEW IV IN RIGHT FA. PATIENT WILL BE NPO AFTER MIDNIGHT IN PREP FOR TUESDAY SURGERY. NO SIGNS OF DISTRESS. WILL CONTINUE TO MONITOR.
[2019-11-11 19:32] VITALS: BP 142/68
--- NOTE | 2019-11-12 03:12 | NUR ---
ASSUMED CARE OF PT AT 1900HRS. PT IS AOX4 AND LETS NEEDS BE KNOWN. PT IS UP AD AMBREEN. ABX TREATMENT CONTINUED. 2L 02 VIA NC PLACED DURING HS. PT DENIED PAIN, NAUSEA OR SOA. PT WAS PLACED NPO AT IA FOT PROCEDURE IN THE AM. PT WAS ABLE TO GET COMFORTABLE AND SLEEP PART OF THE SHIFT. VSS AND NO S/S OF ACUTE DISTRESS. WILL CONTINUE TO MONITOR FOR CHANGES.
[2019-11-12 03:34] VITALS: BP 131/49
[2019-11-12 06:02] LABS: CALCIUM 8.7 mg/dL (8.5-10.1); CREATININE 0.8 mg/dL (0.6-1.0); POTASSIUM 3.8 mmol/L (3.5-5.1)
[2019-11-12 07:29] VITALS: BP 147/65
--- NOTE | 2019-11-12 12:10 | HC ---
[facility] [place] [address] CONSULTATION Name: CHITO WONG Room #: 457-P ADM IN M.R.#: [id number] Admission: 11/07/19 Attend Phys: Robin Hogan MD Discharge: Date of : 47 Report #: [id number] THIS REPORT FOR: cc: Cornelia Sage MD, Staci M. MD Soliman, Mohsin Q. MD FACS ~ CC: Robin aSge DATE OF SERVICE: 11/08/2019 GENERAL SURGERY CONSULTATION REFERRING PROVIDER: Dr. Guo. REASON FOR CONSULTATION: Abdominal pain with incarcerated ventral hernia. HISTORY OF PRESENT ILLNESS: The patient is a 74-year-old obese female with a past surgical history of undergoing an open paraesophageal hernia repair 22 years ago as well as a laparoscopic cholecystectomy, prior to that, who was admitted for the second time in 6 months with complaints of epigastric to supraumbilical abdominal pain with significant bulging and findings of an incarcerated loop of transverse colon contained within an incisional ventral hernia. The patient was admitted in May for similar findings at which time she underwent an attempted colonoscopy, at which time, Dr. Zuñiga was only able to traverse to 100 cm as it was felt the scope was getting caught up in the incarcerated segment of bowel contained in the ventral hernia itself. The patient has been having normal bowel movements and in her usual state of health until the past several days when she developed this acute onset pain with nausea and vomiting. The patient was admitted, given IV fluid rehydration and antibiotics as her CT scan did show questionable colitis as well and her lactate has improved substantially with hydration down to a level of 1.5. The patient states significant improvement in her overall discomfort and has passed gas, but not yet had a bowel movement. I am consulted to evaluate for definitive surgical evaluation and management. PAST MEDICAL HISTORY: GERD, hypertension, hyperlipidemia, prior bouts of colitis, prior cholecystectomy and tonsillectomy, paraesophageal hernia repair, pilonidal cystectomy and D and C. HOME MEDICATIONS: Amlodipine, atorvastatin, quinapril, fenofibrate, hydrochlorothiazide, vitamin B12, omeprazole, Synthroid, metformin, glyburide, aspirin and vitamin D. ALLERGIES: No known drug allergies. [address] [address] CONSULTATION Name: CHITO WONG Room #: 457-P [facility] IN .R.#: [id number] Admission: 11/07/19 Attend Phys: Robin Hogan MD Discharge: Date of : 47 Report #: [id number] SOCIAL HISTORY: The patient does not utilize tobacco, alcohol or illicit drugs. FAMILY HISTORY: Reviewed and noncontributory. REVIEW OF SYSTEMS: GENERAL: The patient denies nocturnal fevers or chills. HEENT: No change in vision, change in hearing. NECK: No swelling or difficulty swallowing. HEART: No chest pain or palpitations. LUNGS: No cough or shortness of breath. ABDOMEN: Abdominal pain with nausea and vomiting. GENITOURINARY: No dysuria or hematuria. ENDOCRINE: No polyuria or polydipsia. HEMATOLOGIC: No history of bleeding or easy bruising. EXTREMITIES: No history of weakness or limited range of motion. NEUROLOGIC: No history of syncope or near syncopal episodes. SKIN AND INTEGUMENT: No history of abnormal lesions or moles. PSYCHIATRIC: No history of anxiety or depression. PHYSICAL EXAMINATION: VITAL SIGNS: Temperature 36.8, pulse 76, respirations 17, blood pressure 129/52. GENERAL: Alert, in no acute distress. HEENT: Normocephalic, atraumatic. Pupils equal, round, reactive to light. NECK: Supple, without lymphadenopathy. Trachea midline. HEART: Regular rate and rhythm. LUNGS: Clear to auscultation bilaterally. ABDOMEN: Soft, nondistended. She is tender to palpation in the epigastrium to the supraumbilical region with a firmness consistent with her incarcerated loop of transverse colon. She does not have any guarding, rebound or peritoneal signs or symptoms. GENITOURINARY: Normal external female genitalia. EXTREMITIES: No clubbing, cyanosis or edema. NEUROLOGIC: Cranial nerves 2-12 are grossly intact. PSYCHIATRIC: Normal mood and affect. SKIN AND INTEGUMENT: No abnormal lesions or moles. LABORATORY AND X-RAY DATA: CBC upon admission showed a white blood cell count of 15.6 thousand, hemoglobin 11.3, platelets 350,000. Creatinine was 1.0, glucose was high at 265. Liver function enzymes were normal. Lactic acid was 3.0 on admission, which climbed to 3.4, but is now normal at 1.[address] scan of the abdomen and pelvis as per HPI show incarcerated loop of transverse colon contained within a supraumbilical to epigastric incisional ventral hernia without overt complete obstruction. There is also a small recurrent hiatal hernia present. [facility] [address] [place] [address] CONSULTATION Name: CHITO WONG Room #: 457-P [facility] IN M.R.#: [id number] Admission: 11/07/19 Attend Phys: Robin Hogan MD Discharge: Date of : 47 Report #: [id number] ASSESSMENT AND PLAN: A 74-year-old obese female with an incarcerated loop of transverse colon contained within an incisional ventral hernia in the supraumbilical to epigastric region. The patient does not appear to be overtly obstructed at this time as she is passing gas and her pain has significantly improved. The patient will remain on a clear liquid diet at this time with serial abdominal exams and repeat labs in the morning. Plan will be for definitive surgical management in the form of laparoscopic repair of her incarcerated incisional ventral hernia with mesh at the first available time point. The patient should get COVID testing to ensure that she is negative and have the ability to proceed to the operating room and then she will be scheduled appropriately, likely Tuesday. I sincerely appreciate this consult. I will follow along and leave any further recommendations in the patient's chart as appropriate. <ELECTRONICALLY SIGNED> By: Nola Reddy MD, FACS 11/12/19 1210 1121 [id number] Nola Reddy MD, FACS /nt
--- NOTE | 2019-11-12 13:04 | NUR ---
ASSUMED CARE AT 0700. PT ALERT AND ORIENTED. NO COMPLAINTS. AWAITING SURGERY. VSSA/RA. O2 AT NOC BASELINE. TELE NSR/MAYTE. NPO THIS AM. BLOOD SUGARS STABLE. PIV INFUSING WITHOUT PROBLEMS. 1050- PT WENT TO SURGERY.
--- NOTE | 2019-11-12 14:11 | NUR ---
PT HAD HERNIA REPAIR SURGERY THIS DAY. CM TO FOLLOW REGARDING POSSIBLE NEEDS UPON DC.
[2019-11-12 15:14] VITALS: BP 142/68
[2019-11-12 16:52] VITALS: BP 140/70
[2019-11-12 19:41] VITALS: BP 123/62
[2019-11-13 04:51] VITALS: BP 116/56
--- NOTE | 2019-11-13 06:00 | NUR ---
Pt. rested quietlly at intervals during the night when checked on during frequent rounds. Lapsites to abdomen are c/d/i. Po pain meds given (see emar) for c/o abdominal pain with some relief noted. No c/o nausea. Up to the bathroom with assistance of one. She did void.
[2019-11-13 08:48] VITALS: BP 136/64
--- NOTE | 2019-11-13 12:24 | NUR ---
Received awake on bed. Due medications given as prescribed, able to swallow meds w/o difficulty. On O2 at 5lpm via nasal cannula. A+Ox4. 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 On regular diet- tolerating well; no nausea, no vomiting and no abominal pain noted. On blood sugar monitoring- taken and recorded accordingly; sliding scale insulin given as prescribed. With NS at 100cc/hr, infusing well at R FA; on IV antibiotics. With abdominal lap sites with dermabond- no signs of bleeding and drainage noted. Complained of pain, due PRN pain meds given as prescribed. Pt seen and examined by Dr Tavarez, informed him pt weaned off oxygen at 5lpm via nasal cannula to 3lpm- saturating at 94%. Continent of bowel and bladder- assisted to go to the toilet with gait belt. To continue monitoring patient.
--- NOTE | 2019-11-13 14:36 | NUR ---
ON-GOING ASSESSMENT: PT IS S/P HERNIA REPAIR ON 11/12. PT WAS REORDERED FOR PATIENT POST OP. PLAN IS FOR PT TO CONTINUE TO WORK WITH THERAPIES NOW THAT SHE IS POST OP TO HELP DETERMINE NEEDS AND IS POSSIBLE DISCHARGE FOR TOMORROW. CM WILL CONTINUE TO FOLLOW TO ASSIST NEEDED.
[2019-11-13 16:50] VITALS: BP 130/62
[2019-11-13 19:09] VITALS: BP 1470/67
[2019-11-14 03:34] VITALS: BP 111/47
[2019-11-14 05:57] LABS: HEMATOCRIT 30.1 % (37.0-47.0); MCHC 33.3 g/dL (28.0-37.0); RBC 3.59 mil/uL (4.20-5.00); RDW 14.7 % (10.5-14.5); WBC 13.1 thou/uL (4.0-11.0)
[2019-11-14 06:14] LABS: CALCIUM 8.3 mg/dL (8.5-10.1); CREATININE 1.2 mg/dL (0.6-1.0); MAGNESIUM 1.5 mg/dL (1.8-2.4); POTASSIUM 3.7 mmol/L (3.5-5.1)
[2019-11-14 07:17] VITALS: BP 120/64
--- NOTE | 2019-11-14 07:45 | NUR ---
ASSUMED PT CARE AROUND 193. AXOX4. CALL APPROPRIATELY FOR HELP. PAIN MEDS PER MD ORDER. NO S/S ACUTE DISTRESS NOTED OR REPORTED AT THIS TIME. CARE TRANSFERRED TO INCOMING RN AT THIS TIME.
--- NOTE | 2019-11-14 11:44 | NUR ---
Received awake on bed. Due medications given as prescribed, able to swallow medications w/o difficulty. On O2 at 2lpm via nasal cannula, using CPAP at night. A+Ox4. On heart monitoring- strips attached to chart; no complaints of chest pain, crushing sensation and heaviness. On regular diet- tolerating well; no nausea, no vomiting and no abdominal pain. On blood sugar monitoring- taken and recorded accordingly; with sliding scale insulin prescribed. Continent of bowel and bladder- able to go to the toilet with standby assist and gait belt, passing gas but still no bowel movement. With NS at 100cc/hr, infusing well at R upper arm. With abdominal lap sites with dermabond, C/D/I, no signs of bledding and no drainage. Seen by physical therapist today, able to walk in the hallway, able to sit out on the chair. To continue monitoring patient.
--- NOTE | 2019-11-14 13:20 | NUR ---
Nutrition followup: pt admitted with colitis, partial SBO. S/P lap ROZINA, ventral hernia repair with mesh 11/11. Was clear liquids for several days now tolerating > 75% of meals on regular diet. BG 162-236 with hx of DM. RD will add carb controlled to diet order. Low nutrition risk.
[2019-11-14 15:28] VITALS: BP 146/66
--- NOTE | 2019-11-14 15:29 | NUR ---
CM CALLED AND SPOKE WITH PT ABOUT HOME HEALTH UPON DC PT HAD SEEN AND INDICATED SHE MIGHT BENEFIT. PT INDICTAED SHE DIDN'T WANT ANY HOME HEALTH UPON DC BUT THAT SHE MIGHT BE RECEPTIVE TO OUTPATIENT HH UPON DC. PT IS ON 2L O2 OF THIS NOTE AND HADN'T BEEN ON 02 DOUGH CATCHER. CM NOTIFIED HOSPITALIST. CM TO FOLLOW INDICATED WITH DC PLANNING.
--- NOTE | 2019-11-14 16:08 | PATH ---
[facility] [address] [place] [address] PATHOLOGY RPT PROCEDURE Name: CHITO PEARSON Room #: 457-P ADM IN M.R.#: [id number] Admission: 11/07/19 Date of : 49 Discharge: Report #: [id number] Path Case #: [id number] [facility] Accession Number: [id number] . 01 Material submitted: . hernia - HERNIA SAC . 01 Clinical history: . Incarcerated incisional ventral hernia; partial small bowel obstruction; UTI; hypokalemia . 02 Diagnosis: Hernia sac, incarcerated incisional ventral hernia, repair: - Fibrovascular connective tissue with congestion and reactive changes, compatible with hernia sac. . (IUV:mml; 11/14/2019) QLM 11/14/2019 1304 Local . 02 Electronically signed: . Sulma Cardoso MD, Pathologist NPI- [id number] . 01 Gross description: . The specimen is received in formalin, labeled "Chito Pearson, hernia sac". Received is a segment of fibroadipose tissue with a slight amount of attached fibromembranous tissue measuring 4.1 x 2.3 x 1.5 cm in greatest dimensions. No distinct nodules or lesions are noted grossly. The specimen is submitted representatively in cassette A1. (CAA; 11/13/2019) QA/QA 11/13/2019 1043 Local . 02 Pathologist provided ICD-10: K44.9 . 02 CPT . 206824 Specimen Comment: A courtesy copy of this report has been sent to [phone] Specimen Comment: [id number], Specimen Comment: Report sent to ,DR BELTRAN / DR MACIAS Performed at: [address] [id number] MD Tim Rojas MD Phone: [phone] Performed at: [address] [id number] PATHOLOGY RPT PROCEDURE Name: CHITO PEARSON Room #: 457-P ADM IN M.R.#: [id number] Admission: 11/07/19 Date of : 49 Discharge: Report #: [id number] Path Case #: [id number] [address] [place] [id number] MD Sulma Cardoso MD Phone: [phone]
[2019-11-14 19:25] VITALS: BP 135/64
[2019-11-15 04:11] VITALS: BP 126/60
--- NOTE | 2019-11-15 04:48 | NUR ---
ASSUMED PT CARE ANAHY 1929. AXOX4. INDEPENDENT WITH ADLs AND CALLS APPROPRIATELY FOR ASSISTANCE PRN. LAP SITES C,D,I. VSS. NO S/S ACUTE DISTRESS NOTED OR REPORTED AT THIS TIME. WILL CONT TO MONITOR FOR ANY CHANGES IN CONDITION.
[2019-11-15 08:40] VITALS: BP 150/73
[2019-11-15 11:53] VITALS: BP 150/73
[2019-11-15 14:12] VITALS: BP 150/73
--- NOTE | 2019-11-15 14:12 | NUR ---
AWAITING SURGERY INPUT REGARDING POSSIBLE DC HOME THIS DAY. PT STILL HASN'T HAD A BM. CM HAD SPOKEN WITH PT ABOUT HH YESTERDAY AND SHE INDICATED THAT SHE WASN'T INTERESTED. PHYSICAIN ASKED THAT SERVICES BE SET UP AND IT E REITERATED THAT PT HAD RIGHT TO REFUSE UPON DC. [facility] CAN ACCEPT PT UPON DC. NO OTHER CM INTERVENTION INDICTAED. POSSIBLE DC HOME WITH [facility] HH ONCE PT HAS BM.
--- NOTE | 2019-11-15 16:20 | NUR ---
FAXED REFERRAL TO [facility] SPOKE WITH KAVITHA IN INTAKE SHE RECEIVED REFERRAL AND WILL ACCEPT AT [place]. DP TO FOLLOW.
[2019-11-15 17:45] VITALS: BP 148/70
[2019-11-15 18:59] VITALS: BP 142/56
--- NOTE | 2019-11-15 19:18 | NUR ---
ASSUMED CARE OF PATIENT AT 0700. ASSESSMENTS CHARTED. RIGHT FOREARM IV INFILTRATED AND NEW IV PLACED BY IV TEAM ON RIGHT FA. LAP SITES DERMABONDED WITHOUT REDNESS, ERRYTHEMA OR DRAINAGE. ACCU CHECK ACHS, LOW DOSE SCALE. PATIENT DID NOT REQUEST ANY PAIN MEDICATION TODAY. PATIENT AMBULATED THE UNIT WITHOUT ANY DIFFICULTY. PATIENT SAT UP IN THE CHAIR FOR THE ENTIRETY OF THE DAY. PATIENT TO CONTINUE WITH POC.
[2019-11-16 04:28] VITALS: BP 153/76
--- NOTE | 2019-11-16 05:00 | NUR ---
ASSUMED PT CARE AT 1900. PT IS ALERT AND ORIENTED WITH NO SIGN OF DISTRESS NOTED IN PT. PT IS AMBULATORY. DENIES ANY PAIN. ASSESSMENT COMPLETED AND DOCUMENTED. SCHEDULED MEDS ADMINISTERED TO PT. CONTINUE TO MONITOR PATIENT. DENIES ANY FURTHER NEEDS AT THIS TIME.
[2019-11-16 06:21] LABS: ABSOLUTE NEUTROPHILS 5.2 thou/uL (1.4-8.2); BASOPHILS 0.5 % (0.0-2.0); EOSINOPHILS 4.3 % (0.0-3.0); HEMATOCRIT 30.7 % (37.0-47.0); HEMOGLOBIN 10.3 gm/dL (12.0-15.0); LYMPHOCYTES 27.8 % (24.0-44.0); MCH 28.1 pg (26.0-34.0); MCHC 33.4 g/dL (28.0-37.0); MCV 84.2 fL (80.0-100.0); MONOCYTES 8.2 % (1.0-8.0); PLATELET COUNT 284 thou/uL (150-400); POLYS 59.2 % (36.0-66.0); RBC 3.65 mil/uL (4.20-5.00); RDW 15.7 % (10.5-14.5); WBC 8.8 thou/uL (4.0-11.0)
[2019-11-16 06:44] LABS: CALCIUM 8.7 mg/dL (8.5-10.1); CREATININE 0.8 mg/dL (0.6-1.0); MAGNESIUM 1.3 mg/dL (1.8-2.4); POTASSIUM 3.6 mmol/L (3.5-5.1)
[2019-11-16 07:47] VITALS: BP 127/75
[2019-11-16 09:42] VITALS: BP 127/75
[2019-11-16] MEDS ORDERED: NORCO 5-325 TA1 EAC1 PO (09:53)
[2019-11-16] MEDS ORDERED: ACETAMINOPHEN325 M1 PO (09:53)
[2019-11-16] MEDS ORDERED: NEURONTIN 300M300 M2 PO (09:53)
[2019-11-16 12:01] LABS: URINE BILIRUBIN NEGATIVE (Negative); URINE BLOOD NEGATIVE (Negative); URINE CLARITY CLEAR; URINE COLOR YELLOW; URINE GLUCOSE-RANDOM* 2+ (Negative); URINE KETONES NEGATIVE (Negative); URINE LEUKOCYTES-REFLEX NEGATIVE (Negative); URINE NITRITE-REFLEX NEGATIVE (Negative); URINE PROTEIN (DIPSTICK) NEGATIVE (Negative); URINE UROBILINOGEN 0.2 E.U./dl (0.2-1.0)
--- NOTE | 2019-11-16 12:05 | NUR ---
CARE TEAM INDICATED THAT PT IS MEDICALLY STABLE TO DC HOME THIS DAY. CM CALLED AND SPOKE WITH PT AND INDICATED THAT HH SERVICES HAD BEEN SET UP THROUGH [facility] AND THAT THEY WOULD CONACT HER TO SET UP INITIAL ASSESSMENT VISIT AND THAT PT HAD RIGHT TO REFUSE SERVICES AFTER DC. PT INDICATED SHE HAS TRANSPORT AVAIABLE TO HER. PT HAS ALL NEEDED DME. NO OTHER CM INTERVENTION INDICATED. CASE CLOSED.
--- NOTE | 2019-11-16 14:58 | NUR ---
Assumed pt care this am, pt has been ambulating the hallways with a steady gait. Was able to have a bowel movement 3 x this am on her own. Diet and medications were well tolerated. VS stable, POC followed with no signs or verbalizations of distress noted. DC orders and prescriptions given to the pt, IV removed. Blood sgiar checks done wtih medications given as per emar. VS have been stable. PT is now dc.
--- NOTE | 2019-11-20 13:45 | NUR ---
PT DISCHARGED TO HOME WITH [facility] ON 11/15 FAXED DC ORDERS/SUMMARY SPOKE WITH KAVITHA IN INTAKE SHE RECEIVED ORDERS AND WILL NOTIFY PT TIME OF VISITS/
== END 2019-11-16 15:13 | disposition home or self-care (01) | DRG 853 ==
LOC: ER 17:36 → 4W 21:05 → EROBS 21:05 → 4W 22:07
PROVIDERS: Internal Medicine; Nurse Practitioner; Nurse Practitioner Family; Physician Assistant; Surgery; ADMIT Hospitalist
PROC: 0JN83ZZ Release Abdomen Subcutaneous Tissue and Fascia, Percutaneous Approach (ICD-10-PCS; principal; 2019-11-12)
PROC: 0WUF4JZ Supplement Abdominal Wall with Synthetic Substitute, Percutaneous Endoscopic Approach (ICD-10-PCS; principal; 2019-11-12)
DX: A41.9 Sepsis, unspecified organism (principal); J96.01 Acute respiratory failure with hypoxia; K56.50 Intestinal adhesions [bands], unspecified as to partial versus complete obstruction; K42.0 Umbilical hernia with obstruction, without gangrene; N17.9 Acute kidney failure, unspecified; K43.0 Incisional hernia with obstruction, without gangrene; K55.9 Vascular disorder of intestine, unspecified; Z68.42 Body mass index [BMI] 45.0-49.9, adult; A09 Infectious gastroenteritis and colitis, unspecified; D72.829 Elevated white blood cell count, unspecified; G47.33 Obstructive sleep apnea (adult) (pediatric); E03.9 Hypothyroidism, unspecified; E78.00 Pure hypercholesterolemia, unspecified; E11.9 Type 2 diabetes mellitus without complications; I10 Essential (primary) hypertension; K21.9 Gastro-esophageal reflux disease without esophagitis; M19.90 Unspecified osteoarthritis, unspecified site; E78.5 Hyperlipidemia, unspecified; E55.9 Vitamin D deficiency, unspecified; E87.6 Hypokalemia; E86.0 Dehydration; Z20.828 Contact with and (suspected) exposure to other viral communicable diseases; E66.01 Morbid (severe) obesity due to excess calories; Z90.49 Acquired absence of other specified parts of digestive tract; Z79.899 Other long term (current) drug therapy
CPT/HCPCS: 10045; 50010; 50101; 50249; 50386; 50555; 50558; 50962; 50981; 50984; 52265; 53307; 54022; 54118; 56462; 56525; 56526; 57092; 62110; 62900; 70005

== ENCOUNTER → 2019-12-21 | Outpatient (CLI) | payer OTHER ==
[~2019-12-21] MED LIST changes: +ACETAMINOPHEN325 M1 PO; +AMLODIPINE-ATO1 EAC6 PO; +FENOFIBRATE145 M1 PO; +HYDROCHLOROTH12.5 M2 PO; +LEVOTHYROXINE150 MCG PO; +NEURONTIN 300M300 M2 PO; +NORCO 5-325 TA1 EAC1 PO; +OMEPRAZOLE 20 M20 M1 PO; +VITAMIN B-12500 MCG PO
== END ==
LOC: SJCVC 14:06
PROVIDERS: ATTEND Internal Medicine Cardiovascular Disease
DX: I44.0 Atrioventricular block, first degree (principal); R94.31 Abnormal electrocardiogram [ECG] [EKG]; I10 Essential (primary) hypertension; E78.00 Pure hypercholesterolemia, unspecified; G47.33 Obstructive sleep apnea (adult) (pediatric); E08.00 Diabetes mellitus due to underlying condition with hyperosmolarity without nonketotic hyperglycemic-hyperosmolar coma (NKHHC); I65.23 Occlusion and stenosis of bilateral carotid arteries; K21.9 Gastro-esophageal reflux disease without esophagitis; M19.90 Unspecified osteoarthritis, unspecified site; Z79.82 Long term (current) use of aspirin; Z79.899 Other long term (current) drug therapy; Z82.49 Family history of ischemic heart disease and other diseases of the circulatory system

== ENCOUNTER → 2019-12-21 | Outpatient (CLI) | payer OTHER | LOC: CAT 15:24 | PROVIDERS: ATTEND Internal Medicine Cardiovascular Disease | DX: Z13.6 Encounter for screening for cardiovascular disorders (principal); I25.10 Atherosclerotic heart disease of native coronary artery without angina pectoris; E78.00 Pure hypercholesterolemia, unspecified ==

== ENCOUNTER → 2020-11-11 | Outpatient (CLI) | payer OTHER | LOC: SJCVC 15:26 | PROVIDERS: ATTEND Internal Medicine Cardiovascular Disease | DX: I10 Essential (primary) hypertension (principal); E78.00 Pure hypercholesterolemia, unspecified; E11.9 Type 2 diabetes mellitus without complications; K21.9 Gastro-esophageal reflux disease without esophagitis; G47.33 Obstructive sleep apnea (adult) (pediatric); Z79.82 Long term (current) use of aspirin; Z79.899 Other long term (current) drug therapy; Z95.1 Presence of aortocoronary bypass graft; Z79.84 Long term (current) use of oral hypoglycemic drugs ==